=== PATIENT | female | born 1990 | race Asian ===

== ENCOUNTER 2022-03-28 05:30 | Inpatient (IN) | payer BC ==
[2022-03-28] MEDS ORDERED: Promethazine HCl 25 MG/ML VIAL IM PRN ×2 (06:09→08:51)
[2022-03-28] MEDS ORDERED: Lidocaine 1% (PF) 30 ML VIAL SC PRN (06:09)
[2022-03-28] MEDS ORDERED: Ondansetron PF 4 MG/2 ML Vial IVP PRN ×3 (06:09→16:18)
[2022-03-28] MEDS ORDERED: hydrALAZINE 20 MG/ML VIAL SLOW IVP PRN ×2 (06:09→16:18)
[2022-03-28] MEDS ORDERED: Ibuprofen 800 MG TAB PO PRN (06:09)
[2022-03-28] MEDS ORDERED: Butorphanol Tartrate 1 MG/ML VIAL SLOW IVP PRN (06:09)
[2022-03-28] MEDS ORDERED: HYDROcodone/Acetaminophen 5/325 mg Tablet PO PRN ×4 (06:09→16:18)
[2022-03-28 06:23] VITALS: BMI 27.1
[2022-03-28] MEDS ORDERED: NS w/ Oxytocin 30 units 500 ML IV SCH ×2 (06:30)
[2022-03-28 07:49] LABS: Hemoglobin 10.8 g/dL (12.0-15.5); Mean Corpuscular HGB CONC 33.9 g/dL (32.0-36.0); Mean Corpuscular Hemoglobin 26.9 pg (27.0-33.0); Mean Corpuscular Volume 79.4 fl (81.6-98.3); Platelet Count 272 10x3/uL (150-450); RBC Distribution Width 12.9 % (11.5-14.5); Red Blood Cell (RBC) Count 4.02 10x6/uL (3.90-5.03); White Blood Cell (WBC) Count 8.7 10x3/uL (3.5-10.5)
[2022-03-28 07:52] LABS: HBSAg Index 0.19 S/CO (0-0.99); Hep B Surf Ag Non-Reactive S/CO (NonReactive)
[2022-03-28 07:54] LABS: Syphilis Antibody Nonreactive (Nonreactive); Syphilis Antibody Index 0.07 S/CO (<1.00 Non-Reactive)
[2022-03-28] MEDS ORDERED: Fentanyl 2 mcg/Bup 0.1% Cadd 100 ML ONE (08:00)
[2022-03-28] MEDS: Lactated Ringer's 1,000 ML IV SCH ×2 (08:34→08:50)
[2022-03-28 08:51] LABS: SARS-CoV-2 NAA Rapid Test Not Detected (NotDetected)
[2022-03-28] MEDS ORDERED: Moisturizing Cream (Eucerin) 113 GM JAR TOP PRN (08:51)
[2022-03-28] MEDS ORDERED: Acetaminophen 325 MG TAB PO PRN (08:51)
[2022-03-28] MEDS ORDERED: diphenhydrAMINE 50 MG/ML VIAL IVP PRN (08:51)
[2022-03-28] MEDS ORDERED: Lactated Ringer's 500 ML IV PRN (08:51)
[2022-03-28] MEDS ORDERED: Naloxone HCl 0.4 mg/ml Vial IVP PRN ×2 (08:51)
[2022-03-28] MEDS ORDERED: ePHEDrine Sulfate 50 MG/10 ML VIAL SLOW IVP PRN (08:51)
[2022-03-28] MEDS ORDERED: Communication Order-Pharmacy FS SCH (09:00)
[2022-03-28] MEDS ORDERED: Bupivacaine/Epinephrine 0.25% 30 ML VIAL ONE (09:00)
[2022-03-28] MEDS ORDERED: Fentanyl 2 mcg/Bupivacaine 0.1% Cassette 100 ML EPIDURAL SCH (09:00)
[2022-03-28] MEDS ORDERED: Misoprostol 200 MCG TAB PR SCH (13:09)
[2022-03-28] MEDS: Misoprostol 200 MCG TAB ONE (13:33)
[2022-03-28] MEDS ORDERED: Methylergonovine 0.2 MG/ML VIAL ONE (14:42)
[2022-03-28] MEDS ORDERED: Methylergonovine 0.2 MG/ML VIAL IM SCH (15:00)
[2022-03-28] MEDS ORDERED: Lanolin Ointment 7 GM TUBE TOP PRN (16:18)
[2022-03-28] MEDS ORDERED: Bisacodyl 10 MG SUPP PR PRN (16:18)
[2022-03-28] MEDS ORDERED: Preparation H Ointment 28 GM TUBE PR PRN (16:18)
[2022-03-28] MEDS ORDERED: Milk Of Magnesia 30 ML UDCUP PO PRN (16:18)
[2022-03-28] MEDS ORDERED: diphenhydrAMINE 25 MG CAP PO PRN (16:18)
[2022-03-28] MEDS: Docusate 100 MG CAP PO SCH (20:38)
[2022-03-28] MEDS: Ibuprofen 800 MG TAB PO SCH (20:38)
[2022-03-29] MEDS: Ibuprofen 800 MG TAB PO SCH ×3 (06:09→14:22)
[2022-03-29] MEDS: Ferrous Sulfate 325 MG TAB PO SCH ×2 (07:15→09:02)
[2022-03-29 07:32] VITALS: TEMP 98.2
[2022-03-29] MEDS: Docusate 100 MG CAP PO SCH (08:59)
[2022-03-29] MEDS ORDERED: Prenatal Vitamin 1 TAB PO SCH (09:00)
[2022-03-29 11:36] VITALS: BP 112/71
[2022-03-29] MEDS ORDERED: Boostrix 0.5 ML (Tdap) VIAL (>/=7 yrs of age) IM ONE (16:18)
== END 2022-03-29 17:55 | disposition home or self-care (01) | DRG 807 ==
LOC: CSHLD 05:55 → CSHPP 16:30
PROVIDERS: ADMIT Obstetrics & Gynecology; ATTEND Obstetrics & Gynecology
PROC: 10E0XZZ Delivery of Products of Conception, External Approach (ICD-10-PCS; principal; 2022-03-28)
DX: O62.2 Other uterine inertia (principal); Z37.0 Single live birth; Z3A.39 39 weeks gestation of pregnancy; Z20.822 Contact with and (suspected) exposure to COVID-19
CPT/HCPCS: 85027; 86780; 86850; 86900; 86901; 87340; J2210; J2590; J7120; U0002